=== PATIENT | male | born 1940 | race Caucasian/White ===

== ENCOUNTER 2019-04-17 10:53 | Inpatient (IN) ==
--- NOTE | 2019-03-30 12:13 | Anesthesiology Consultation ---
Date of Service March 30, 2019 Assessment & Plan (1) Encounter for pre-operative examination: Pending surgeon ordered PCP clearance (Gerry) 03/27. Multiple attempts made to obtain PCP clearance. Office is closed on and we will be unable to obtain note today (04/16). Patient will be scheduled as last case for 04/17 and will try to obtain PCP clearance AM DOS. Patient is acceptable risk from anesthesia standpoint, but surgeon ordered PCP clearance. Dr. Goncalves (scheduled to have this case) made aware. Chart check nurse notified SDS. Chart Review Chart Review: Acceptable Risk for Surgery and Patient seen in Pre Admission Testing Teaching & Discussion Instructed NPO after midnight before surgery, except medications with 15 cc of water. Medication instructions provided according to the PAT guidelines. History Surgery Operation Date: 04/17/19 13:00 Proposed Procedures p Left Total Knee Arthroplasty - Rickey Knight MD Height/Weight Height: 6 ft 1 in Weight: 101.7 kg Allergies Allergy/AdvReac Type Severity Reaction Status Date / Time No Known Allergies Allergy Verified 03/23/19 08:06 Medications Home Medications Medication Instructions Recorded Confirmed Last Taken Glucosamine, Chondroiton, Tumeric 1 tab PO BID 03/23/19 03/23/19 Unknown , Msm cholecalciferol (vitamin D3) 1,000 unit PO DAILY 03/23/19 03/23/19 Unknown [Vitamin D3] ezetimibe-simvastatin 1 tab PO QAM 03/23/19 03/23/19 03/22/19 omeprazole 40 mg PO QAM 03/23/19 03/23/19 Unknown telmisartan-hydrochlorothiazid 1 tab PO QAM 03/23/19 03/23/19 03/22/19 ergocalciferol (vitamin D2) 50,000 unit PO UD 03/30/19 03/30/19 Unknown [Vitamin D2] Past Medical History Medical History Acid reflux Bradycardia Asymptomatic History of kidney stones Hyperlipidemia Hypertension Osteoarthritis Exercise / Class Metabolic Activity II 4-5 Yardwork/Stairs/Walk up hill (Denies CP or SOB with 1 FOS) Past Family History Family History Father History of lymphoma Past Surgical History Surgical History History of appendectomy History of arthroscopy of left knee History of arthroscopy of left shoulder History of arthroscopy of right shoulder History of back surgery 3 discs repaired History of colonoscopy History of neck surgery injury related//no problems with ROM in neck Past Anesthesia History No Hx of Anesthesia Complications and No Family Hx of Anesthesia Complications History of PONV No Hx of PONV and No Hx of Motion Sickness Social History Smoking Status: Former smoker Do You Dip or Chew Tobacco: No Smoking End Date: 1979 Hx Alcohol Use: Yes Alcohol type: hard liquor alcohol intake frequency: 0-2 drinks per day (2 per day) Hx Substance Use: No substance use type: does not use Review of Systems Pt denies any recent chest pain, shortness of breath, palpitations, cough, fever or URI. Physical Exam Vital Signs BP: 164/75 (pt reports was 120's systolic at PCP office 03/27) P: 57bpm SPO2: 97% RA T: 97.8 F R: 16 ENMT Mouth: + dentures (full upper) and + dental restorations (crowns on bottom); no chipped teeth and no loose teeth Thyromental Distance: > or= 3.5 Finger Breadths (4) Mallampati Class: II Neck normal visual inspection and + facial hair (thin short mckoy); neck extension not limited Respiratory normal respiratory effort Auscultation: lungs clear to auscultation bilaterally Cardiovascular Rate/Rhythm: regular rhythm and + bradycardic Heart Sounds: no murmur Vessels: no carotid bruit Extremities: no edema Testing Laboratory Results 03/30/19 12:28 03/30/19 12:28 03/30/19 03/30/19 03/30/19 12:28 12:28 12:28 PT 10.5 INR 1.0 APTT 28.6 Hemoglobin A1c 5.3 Urine Color Urine Appearance Urine pH Ur Specific [place] Urine Protein Urine Glucose (UA) Urine Ketones Urine Nitrite Ur Leukocyte Esterase Urine WBC (Auto) Urine RBC (Auto) U Hyaline Cast (Auto) U Epithel Cells (Auto) Urine Bacteria (Auto) Blood Type O Positive Antibody Screen NEGATIVE 03/30/19 12:28 PT INR APTT Hemoglobin A1c Urine Color Yellow Urine Appearance Clear Urine pH 7.0 Ur Specific [place] 1.019 Urine Protein Negative Urine Glucose (UA) Negative Urine Ketones Negative Urine Nitrite Negative Ur Leukocyte Esterase Trace H Urine WBC (Auto) 10-30 H Urine RBC (Auto) 0-4 U Hyaline Cast (Auto) 0 U Epithel Cells (Auto) 5-10 H Urine Bacteria (Auto) 1+ H Blood Type Antibody Screen 03/30/19 12:28 Urine Culture - Preliminary Urine,Clean Catch Enterococcus species Surgeon's office made aware of + UA Electrocardiogram Date: 03/30/19 Findings: + SB @ (48bpm with 1st degree AV block and PACs) Otherwise normal EKG. Chest X-Ray Date: 03/30/19 Findings: + NAD
--- NOTE | 2019-03-30 12:18 | PAT Medication Instructions ---
Medication Instructions Date of Service March 30, 2019 Home Medications Glucosamine, Chondroiton, Tumeric , Msm 1 tab PO BID cholecalciferol (vitamin D3) [Vitamin D3] 1,000 unit PO DAILY ezetimibe-simvastatin 1 tab PO QAM omeprazole 40 mg PO QAM telmisartan-hydrochlorothiazid 1 tab PO QAM ergocalciferol (vitamin D2) [Vitamin D2] 50,000 unit PO UD STOP taking 2 weeks before surgery Glucosamine, Chondroiton, Tumeric , Msm 1 tab PO BID DO NOT take the morning of surgery cholecalciferol (vitamin D3) [Vitamin D3] 1,000 unit PO DAILY telmisartan-hydrochlorothiazid 1 tab PO QAM ergocalciferol (vitamin D2) [Vitamin D2] 50,000 unit PO UD Take morning of surgery With a small sip of water, OTHERWISE NOTHING TO EAT OR DRINK AFTER MIDNIGHT: ezetimibe-simvastatin 1 tab PO QAM omeprazole 40 mg PO QAM Other Notes If you have any questions please call us at [phone] or [phone] or [phone] or [phone]
--- NOTE | 2019-03-30 12:54 | XRay Report ---
XR chest Pre-admission PA/Lat HISTORY: 78 years-old Male pat preoperative exam. No acute chest complaints. COMPARISON: None available TECHNIQUE: PA and lateral views of the chest FINDINGS: Cardiac silhouette is mildly enlarged. There is no pneumothorax, pleural effusion, focal airspace con solidation or overt pulmonary edema. Degenerative changes of the shoulders and spine. Bones appear grossly intact. IMPRESSION: No acute process. The above report was generated using voice recognition software. It may contain grammatical, syntax o r spelling errors. Electronically signed by: Evin Diaz M.D. 03/30/2019 12:52 PM
[2019-03-30 14:23] LABS: Basophils # (auto) 0.05 K/uL (0-0.2); Basophils % (auto) 0.8 %; Eosinophils # (auto) 0.06 K/uL (0-0.5); Hematocrit (blood only) 43.2 % (42-52); Hemoglobin 14.7 g/dL (14.0-18.0); Immature Granulocytes # (auto) 0.08 K/uL (0.00-0.02); Immature Granulocytes % (auto) 1.3 %; Lymphocytes # (auto) 1.34 K/uL (1.2-3.4); Lymphocytes % (auto) 22.1 %; Mean Platelet Volume 10.8 fL (7.4-10.4); Monocytes % (auto) 6.6 %; Neutrophils # (auto) 4.14 K/uL (1.4-6.5); Neutrophils % (auto) 68.2 %; Platelet Count 159 K/uL (130-400); RDW Coefficient of Variation 13.5 % (11.5-14.5); RDW Standard Deviation 43.8 fL (36.4-46.3); Red Blood Count 4.91 M/uL (4.7-6.1); White Blood Count 6.07 K/uL (4.8-10.8)
[2019-03-30 14:30] LABS: Albumin Level 3.8 gm/dl (3.4-5.0); BUN Creatinine Ratio 26.9 (10-20); Calcium 9.5 mg/dl (8.5-10.1); Creatinine Clr Calc Pharmacy 76.8 ml/min; Est GFR (African American) 82.8; Est GFR (Non-African American) 71.4; Potassium 4.6 mmol/L (3.5-5.1)
[2019-03-30 14:37] LABS: Appearance Urine Clear (Clear); Bacteria Urine Automated 1+ (Negative); Bilirubin Urine Negative (Negative); Blood Urine Negative (Negative); Cast Urine Automated 0 /lpf (0-5); Color Urine Yellow; Glucose Urine UA Negative (Negative); Ketones Urine Negative (Negative); Leukocyte Esterase Urine Trace (Negative); Nitrite Urine Negative (Negative); Protein Urine Negative (Negative); RBC Urine Automated 0-4 /hpf (0-4); Specific Gravity Urine 1.019 (1.000-1.030); Urobilinogen Urine Negative (Negative)
[2019-03-30 14:39] LABS: Partial Thromboplastin Ratio 1.1; Partial Thromboplastin Time 28.6 Seconds (21.0-31.0); Prothrombin Time 10.5 Seconds (9.0-12.0)
[2019-03-31 06:46] LABS: Estimated Average Glucose 105 mg/dl; Hemoglobin A1C 5.3 % (4.5-5.6)
--- NOTE | 2019-04-15 08:36 | History & Physical Report ---
Date of Service April 15, 2019 Assessment & Plan (1) Primary osteoarthritis of left knee: Patient has failed conservative measures as above. Treatment options were discussed and he would like to proceed with left total knee arthroplasty. Risks, benefits and alternatives to surgery including but not limited to infection, DVT, pain, stiffness, need for revision surgery, damage to blood vessels, damage to nerves, PE, , were discussed with the patient and they wish to proceed. Plan will be for aspirin 81mg BID x 30 days for DVT prophylaxis. We will plan on outpatient PT when discharge from the hospital. All questions were answered. He will follow up in the office post operatively. History of Present Illness Chief Complaint: Left knee pain Primary Care Provider: Kvng Garrett Patient is a 78 year old male with PMHx significant for HTN, high cholesterol, GERD who presents with long standing left knee pain. He has failed prior conservative measures including injections and anti-inflammatories without much relief. His knee pain is interfering with his normal daily activities. He would like to proceed with left knee replacement. Patient denies headaches, sweats, fevers, chills, double vision, blurred vision, cough, sore throat, dysphagia, chest pain, sob, wheezing, n/v/d/c, numbness, tingling, fatigue, urinary symptoms, mood disorders. ROS positive for left pain and stiffness. Allergies Allergy/AdvReac Type Severity Reaction Status Date / Time No Known Allergies Allergy Verified 03/23/19 08:06 Home Medications Home Medications Medication Instructions Recorded Confirmed Type Glucosamine, Chondroiton, Tumeric 1 tab PO BID 03/23/19 03/23/19 History , Msm cholecalciferol (vitamin D3) 1,000 unit PO DAILY 03/23/19 03/23/19 History [Vitamin D3] ezetimibe-simvastatin 1 tab PO QAM 03/23/19 03/23/19 History omeprazole 40 mg PO QAM 03/23/19 03/23/19 History telmisartan-hydrochlorothiazid 1 tab PO QAM 03/23/19 03/23/19 History ergocalciferol (vitamin D2) 50,000 unit PO UD 03/30/19 03/30/19 History [Vitamin D2] Past Med/Surg History Medical History Acid reflux Bradycardia Asymptomatic History of kidney stones Hyperlipidemia Hypertension Osteoarthritis Surgical History History of appendectomy History of arthroscopy of left knee History of arthroscopy of left shoulder History of arthroscopy of right shoulder History of back surgery 3 discs repaired History of colonoscopy History of neck surgery injury related//no problems with ROM in neck Family History Father History of lymphoma Social History Preferred Language: Lao Communication Ability: Effective 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 Beliefs That Will Affect Care: None Current Living Situation: Alone Other Information That Helps Us Care for You: No Feels Safe at Home: Yes Smoking Status: Former smoker Do You Dip or Chew Tobacco: No Smoking End Date: 1979 Hx Alcohol Use: Yes Alcohol type: hard liquor Hx Substance Use: No Review of Systems All systems reviewed & are unremarkable except as noted in HPI & below Physical Exam Constitutional: well developed and well nourished; no acute distress Eyes: PERRL, conjunctivae normal, anicteric sclerae ENMT: external ear and nose normal, oropharynx normal Neck: trachea midline, no thyromegaly Respiratory: normal respiratory effort, lungs clear to auscultation Cardiovascular: RRR, no murmur, no edema Musculoskeletal: Left knee-Mild effusion with ROM of 0-130 degrees. Stable to valgus and varus stress, negative Ale's. Tenderness medial joint line, positive Heidi's. Mild varus deformity. Skin: no rashes, warm and dry Neurologic: patellar DTR's 2+ bilat, sensation intact Psychiatric: A+Ox3, euthymic affect Results & Data Laboratory Results Lab Results 03/30/19 03/30/19 03/30/19 Range/Units 12:28 12:28 12:28 WBC 6.07 (4.8-10.8) K/uL RBC 4.91 (4.7-6.1) M/uL Hgb 14.7 (14.0-18.0) g/dL Hct 43.2 (42-52) % MCV 88.0 (80-100) fL MCH 29.9 (25-34) pg MCHC 34.0 (32-36) g/dL RDW Std Deviation 43.8 (36.4-46.3) fL RDW Coeff of Reji 13.5 (11.5-14.5) % Plt Count 159 (130-400) K/uL MPV 10.8 H (7.4-10.4) fL Immature Gran % (Auto) 1.3 % Neut % (Auto) 68.2 % Lymph % (Auto) 22.1 % [place] % (Auto) 6.6 % Eos % (Auto) 1.0 % Baso % (Auto) 0.8 % Immature Gran # (Auto) 0.08 H (0.00-0.02) K/uL Neut # (Auto) 4.14 (1.4-6.5) K/uL Lymph # (Auto) 1.34 (1.2-3.4) K/uL [place] # (Auto) 0.40 (0.11-0.59) K/uL Eos # (Auto) 0.06 (0-0.5) K/uL Baso # (Auto) 0.05 (0-0.2) K/uL PT 10.5 (9.0-12.0) Seconds INR 1.0 (0.9-1.1) APTT 28.6 (21.0-31.0) Seconds PTT Ratio 1.1 Sodium 144 (136-145) mmol/L Potassium 4.6 (3.5-5.1) mmol/L Chloride 106 (98-107) mmol/L Carbon Dioxide 29 (21-32) mmol/L Anion Gap 9.0 (3-11) BUN 27 H (7-18) mg/dl Creatinine 1.01 (0.6-1.4) mg/dl Est Cr Clr Drug Dosing 76.8 ml/min Est GFR ( Amer) 82.8 Est GFR (Non-Af Amer) 71.4 BUN/Creatinine Ratio 26.9 H (10-20) Glucose 96 (70-99) mg/dl Estimat Average Glucose mg/dl Hemoglobin A1c (4.5-5.6) % Calcium 9.5 (8.5-10.1) mg/dl Albumin 3.8 (3.4-5.0) gm/dl Urine Color Urine Appearance (Clear) Urine pH (4.5-7.5) Ur Specific [place] (1.000-1.030) Urine Protein (Negative) Urine Glucose (UA) (Negative) Urine Ketones (Negative) Urine Blood (Negative) Urine Nitrite (Negative) Urine Bilirubin (Negative) Urine Urobilinogen (Negative) Ur Leukocyte Esterase (Negative) Urine WBC (Auto) (0-5) /hpf Urine RBC (Auto) (0-4) /hpf U Hyaline Cast (Auto) (0-5) /lpf U Epithel Cells (Auto) (0-5) /lpf Urine Bacteria (Auto) (Negative) Blood Type Antibody Screen 03/30/19 03/30/19 03/30/19 Range/Units 12:28 12:28 12:28 WBC (4.8-10.8) K/uL RBC (4.7-6.1) M/uL Hgb (14.0-18.0) g/dL Hct (42-52) % MCV (80-100) fL MCH (25-34) pg MCHC (32-36) g/dL RDW Std Deviation (36.4-46.3) fL RDW Coeff of Reji (11.5-14.5) % Plt Count (130-400) K/uL MPV (7.4-10.4) fL Immature Gran % (Auto) % Neut % (Auto) % Lymph % (Auto) % [place] % (Auto) % Eos % (Auto) % Baso % (Auto) % Immature Gran # (Auto) (0.00-0.02) K/uL Neut # (Auto) (1.4-6.5) K/uL Lymph # (Auto) (1.2-3.4) K/uL [place] # (Auto) (0.11-0.59) K/uL Eos # (Auto) (0-0.5) K/uL Baso # (Auto) (0-0.2) K/uL PT (9.0-12.0) Seconds INR (0.9-1.1) APTT (21.0-31.0) Seconds PTT Ratio Sodium (136-145) mmol/L Potassium (3.5-5.1) mmol/L Chloride (98-107) mmol/L Carbon Dioxide (21-32) mmol/L Anion Gap (3-11) BUN (7-18) mg/dl Creatinine (0.6-1.4) mg/dl Est Cr Clr Drug Dosing ml/min Est GFR ( Amer) Est GFR (Non-Af Amer) BUN/Creatinine Ratio (10-20) Glucose (70-99) mg/dl Estimat Average Glucose 105 mg/dl Hemoglobin A1c 5.3 (4.5-5.6) % Calcium (8.5-10.1) mg/dl Albumin (3.4-5.0) gm/dl Urine Color Yellow Urine Appearance Clear (Clear) Urine pH 7.0 (4.5-7.5) Ur Specific [place] 1.019 (1.000-1.030) Urine Protein Negative (Negative) Urine Glucose (UA) Negative (Negative) Urine Ketones Negative (Negative) Urine Blood Negative (Negative) Urine Nitrite Negative (Negative) Urine Bilirubin Negative (Negative) Urine Urobilinogen Negative (Negative) Ur Leukocyte Esterase Trace H (Negative) Urine WBC (Auto) 10-30 H (0-5) /hpf Urine RBC (Auto) 0-4 (0-4) /hpf U Hyaline Cast (Auto) 0 (0-5) /lpf U Epithel Cells (Auto) 5-10 H (0-5) /lpf Urine Bacteria (Auto) 1+ H (Negative) Blood Type O Positive Antibody Screen NEGATIVE Diagnostic Findings Left knee radiographs: [id number] medial compartemnt with osteophyte formation medial femoral condyle and tibial plateau. Subchondral sclerotic change.
[~2019-04-17 10:53] MED LIST: ACETAMINOPHEN 500 MG TAB PO SCH; BUPIVACAINE 0.5 % 5 MG/1 ML PF 10ML VIAL ONE; CEFAZOLIN 2000MG 2,000 MG/15 ML SYR IV SCH; CeleBREX 200 MG CAP PO SCH; FAMOTIDINE 20 MG TAB PO SCH; GABAPENTIN 300 MG PO SCH; LR 500ML BOLUS, THEN 15ML/HR IV SCH; METOCLOPRAMIDE HCL 10 MG TABLET PO SCH; ROPIVACAINE 0.5% 5 MG/ML 30 ML VIAL ONE; ROPIVACAINE 0.5% HCL/PF 150 MG, BUPIVACAINE 0.5% MPF 30 ML, EPINEPHrine 30MG/30ML (OR U... INFIL SCH; TRANEXAMIC ACID 1,000 MG **IV Intra-op IV SCH; TRANEXAMIC ACID 1,000 MG **IV Pre-op IV SCH
--- OUTSIDE RECORDS SUMMARY | 2019-04-17 10:59 | External Medical Summary | Continuity of Care Document ---
:1940 Author Name Candido Michael, Provider Address Unavailable Unavailable , Care Team Providers Name Role Phone Luis Daniel Sinclair M.D. Unavailable [email or web address] Unavailable Unavailable Unavailable Unavailable Unavailable Problems Hypertension (401.9) (I10) Nephrolithiasis (592.0) (N20.0) Hypercholesterolemia (272.0) (E78.00) Benign prostatic hyperplasia with urinary obstruction (600.0 1) (N40.1) Allergies and Adverse Reactions No Known Drug Allergies (Allergy) Medications Telmisartan-HCTZ 40-12.5 MG Oral Tablet Refills: 0 Ezetimibe-Simvastatin 10-40 MG Oral Tablet Refills: 0 Gabapentin 300 MG Oral Capsule Refills: 0 Fish Oil CAPS Refills: 0 Compound Medication; Tadalafil 5.5mg one PO qDay Stefan Sinclair Start: 06-Feb-2018 Quantity: 30 Refills: 11 Procedures History of Back Surgery Status: Complete d History of Throat Surgery Status: Comple kendall History of Appendectomy Status: Complete d History of Shoulder Surgery Status: Comp leted History of Knee Surgery Status: Complete d Immunizations Immunizations not documented Family History Father Family history of malignant neoplasm (V16.9) (Z80.9) Status: Active Mother Family history of hypertension (V17.49) (Z82.49) Status: Act daisy Social History - Smoking Status Never smoker Plan of Treatment Planned Encounters Appointment; Luis Daniel Sinclair M.D. Start: 02-Jul-2019 8:50 Request Planned Observations Planned Goals not documented Results No Known Results Results not documented Encounters Appointment; Luis Daniel Sinclair M.D. 12-Feb-2019 9:30 Encounter Diagnosis: Problem not documented Appointment; Luis Daniel Sinclair M.D. 06-Feb-2018 11:00 Encounter Diagnosis: Problem not documented Appointment; Luis Daniel Sinclair M.D. 02-Jul-2019 8:50 Encounter Diagnosis: Problem not documented
--- NOTE | 2019-04-17 12:18 | History & Physical Bridge Note ---
Date of Service April 17, 2019 History & Physical Bridge Note I have examined the patient, reviewed the History & Physical and in the interval since the performance of the History & Physical I have noted the following changes of clinical significance: PCP clearance not required. He has had appropriate pre-op work up. Anesthesia and I have discussed the case and he is safe to proceed with surgery.
[2019-04-17] MEDS ORDERED: BACITRACIN INJ 50,000 UNIT VIAL ONE (12:52)
[2019-04-17] MEDS ORDERED: ORTHO JOINT ANESTHETIC ONE (12:52)
[2019-04-17] MEDS ORDERED: fentaNYL citrate 100 MCG/2 ML VIAL ONE (12:58)
[2019-04-17] MEDS ORDERED: MIDAZOLAM HCL 1 MG/ML 2ML VIAL ONE (12:58)
[2019-04-17] MEDS ORDERED: HYDROmorphone INJ 1 MG/ML SYRINGE IV PRN (13:53)
[2019-04-17] MEDS ORDERED: ATROPINE SULFATE 0.1 MG/ML 10ML SYR IV PRN (13:53)
[2019-04-17] MEDS ORDERED: ePHEDrine sulfate 50 MG/ML AMP IV PRN (13:53)
[2019-04-17] MEDS ORDERED: LIDOCAINE HCL 2% 2 ML VIAL/AMP(20MG/ML) INFIL ONE (13:59)
[2019-04-17] MEDS ORDERED: ePHEDrine sulfate 50 MG/ML AMP ONE (13:59)
[2019-04-17] MEDS ORDERED: PROPOFOL IV EMULSION 10 MG/ML 20 ML VIAL IV ONE ×2 (13:59→14:28)
--- NOTE | 2019-04-17 14:54 | Operative Report ---
Post Operative Report Pre & Post Diagnosis Operation Date: 04/17/19 13:00 Pre-Op Diagnosis: Unilateral Primary Osteoarthritis, Left Knee Post-Op Diagnosis: Unilateral Primary Osteoarthritis, Left Knee Procedure Operation Date: 04/17/19 13:00 Actual Procedures p Left Total Knee Arthroplasty(Left) - Rickey Knight MD Surgeon Rickey Knight MD Promotion Specialist Jose Acevedo PA-C Estimated Blood Loss 20 Findings Consistent with Post-Op Diagnosis Specimens Bone and tissue Drains 2 Hemovac Anesthesia Type MAC Spinal Regional Complications none Disposition Accompanied Patient To Recovery: No Disposition: Recovery Room Indications The patient is a 79-year-old male long-standing pain in the left knee. He is [id number] medial compartment. He has failed conservative measures including injection, anti-inflammatories, physical therapy. He wishes to proceed with total knee arthroplasty Description of Procedure Risks benefits and alternatives of surgery including but not limited to infection, DVT, pain, stiffness, need for surgery, damage to blood vessels, damage to nerves or risks of anesthesia were discussed with the patient and they wished to proceed. The patient was identified and the laterality was confirmed and marked. They received a preoperative antibiotic as well as a spinal anesthetic and an abductor canal block. A well-padded tourniquet was applied and then the limb was prepped and draped in standard manner with ChloraPrep. The limb was exsanguinated and the tourniquet was inflated. I made a standard anterior incision. I sharply incised the skin then utilized Bovie electrocautery to achieve hemostasis. I made a medial parapatellar arthrotomy and mobilized the patella laterally. I then excised the anterior horns of the medial and lateral meniscus as well as the infrapatellar fat pad. I elevated a portion of the MCL off of the tibia. I then pinned into place a patient-matched distal femoral cutting guide and made my distal femoral resection. I then pinned into place the 5 in 1 femoral cutting guide. I made my anterior, posterior and chamfer cuts. I then excised the cruciates and the remaining portions of the menisci. I then pinned into place a patient- matched tibial cutting guide and made my tibial resection. I then pinned into place the tibial plate a utilizing alignment anusha to confirm rotation. I then cut for the post. Utilizing a lamina outside installation machinist and I then removed posterior osteophytes off the femur. I then placed a trial femur into position and cut for the trochlear component. I then sequentially trialed to size the polyethylene until there was good soft tissue balancing and range of motion. I then prepared the patella with a freehand cut utilizing sagittal saw. I sized and drilled for the patella. There was good tracking to the patella no lateral release was needed. All the trial components were removed. The deep tissues were anesthetized with an ortho mix solution. Then with Simplex HV with gentamicin cement, I cemented my definitive components. Definitive components, Cárdenas and Nephew Lisaney 2: Femur 7 Tibia 5 Poly 9 Patella 38 oval A betadine soak was performed. A deep drain was placed. The arthrotomy was closed with interrupted #1 Vicryl suture subcutaneous tissue was closed with interrupted 2-0 Vicryl suture. The skin was closed with with mickey. An Acticoat and Juan M dressing were placed. Sterile dressings were applied. All needle and sponge counts were correct at the end of the procedure patient was transferred to the PACU in stable condition without apparent complication. The PA-C was necessary for assistance with procedure for assistance in positioning, prepping, draping, retraction and closure. I attest to the content of the Intraoperative Record and any orders documented therein. Any exceptions are noted below.
--- NOTE | 2019-04-17 16:36 | Anesthesiology Progress Note ---
Date of Service April 17, 2019 Anesthesia Post Procedure Vital Signs Vital Signs: Temp Pulse Pulse Resp BP BP Pulse Ox 04/17/19 16:25 69 16 149/76 H 97 04/17/19 16:15 36.5 C 65 16 152/76 H 97 04/17/19 16:05 68 16 137/80 96 04/17/19 15:55 77 16 143/66 H 97 04/17/19 15:49 36.0 C L 81 16 112/79 97 04/17/19 11:18 36.4 C L 99 H 18 136/87 95 Transfer of Care Handoff Completed per policy Notes Mental Status: alert / awake / arousable and participated in evaluation Nausea / Vomiting: adequately controlled Pain: adequately controlled Airway Patency, RR, SpO2: stable & adequate BP & HR: stable & adequate Hydration State: stable & adequate Neuraxial Anesthesia: was administered and sensory block is resolving Anesthetic Complications: no major complications apparent and Pt Satisfied with anesthetic care
--- NOTE | 2019-04-17 16:42 | XRay Report ---
XR knee LT 2V routine CLINICAL HISTORY: Postoperative examination COMPARISON: None. DISCUSSION: There are postsurgical changes of a total left knee arthroplasty and patellar resurfacing . The femoral and tibial components appear well seated. Overlying skin mickey and surgical drains ar e evident. There is air within the soft tissues consistent with recent surgery. IMPRESSION: Postsurgical changes of a total left knee arthroplasty. Electronically signed by: Pratik Trujillo M.D. 04/17/2019 4:41 PM
[2019-04-17] MEDS ORDERED: METOCLOPRAMIDE HCL INJ 5 MG/ML 2 ML VIAL IV PRN (16:53)
[2019-04-17] MEDS ORDERED: ONDANSETRON INJ 2 MG/ML 2 ML VIAL IV PRN (16:53)
[2019-04-17] MEDS ORDERED: TAMSULOSIN HCL 0.4 MG CAP PO PRN (16:53)
[2019-04-17] MEDS ORDERED: HYDROmorphone INJ 0.5 MG/0.5 ML SYR IV PRN (16:53)
[2019-04-17] MEDS ORDERED: BISACODYL 10 MG SUPP PR PRN (16:53)
[2019-04-17] MEDS ORDERED: NALOXONE HCL 0.4 MG/1 ML VIAL/CARP IV PRN (16:53)
[2019-04-17] MEDS ORDERED: MAGNESIUM HYDROXIDE SUSP 30 ML UDC PO PRN (16:53)
[2019-04-17] MEDS: SODIUM CHLORIDE 0.9% 1000ML 1,000 ML IV SCH (19:12)
[2019-04-17] MEDS: CeleBREX 200 MG CAP PO SCH (21:22)
[2019-04-17] MEDS: DOCUSATE SODIUM 100 MG CAP PO SCH (21:22)
[2019-04-17] MEDS: SENNA 8.6 MG TAB PO SCH (21:23)
[2019-04-17] MEDS: ASPIRIN 81 MG ECTAB PO SCH (21:23)
[2019-04-17] MEDS: ACETAMINOPHEN 500 MG TAB PO SCH (21:23)
[2019-04-17] MEDS: CEFAZOLIN 2000MG 2,000 MG/15 ML SYR IV SCH (22:24)
[2019-04-18] MEDS: ACETAMINOPHEN 500 MG TAB PO SCH ×3 (05:38→21:00)
[2019-04-18] MEDS: CEFAZOLIN 2000MG 2,000 MG/15 ML SYR IV SCH (05:38)
[2019-04-18 06:06] LABS: Hematocrit (blood only) 38.2 % (42-52); Hemoglobin 13.4 g/dL (14.0-18.0); Mean Corpuscular Hgb Conc 35.1 g/dL (32-36); Mean Platelet Volume 10.8 fL (7.4-10.4); Platelet Count 139 K/uL (130-400); RDW Standard Deviation 41.9 fL (36.4-46.3); Red Blood Count 4.39 M/uL (4.7-6.1); White Blood Count 9.13 K/uL (4.8-10.8)
[2019-04-18] MEDS: SODIUM CHLORIDE 0.9% 1000ML 1,000 ML IV SCH (06:18)
[2019-04-18 06:42] LABS: BUN Creatinine Ratio 29.1 (10-20); Calcium 8.9 mg/dl (8.5-10.1); Creatinine Clr Calc Pharmacy 64.5 ml/min; Est GFR (African American) 68.8; Est GFR (Non-African American) 59.4; Potassium 3.8 mmol/L (3.5-5.1)
--- NOTE | 2019-04-18 08:21 | Orthopedic Progress Note ---
Date of Service April 18, 2019 Assessment & Plan (1) Primary osteoarthritis of left knee: POD #1 s/p left TKA PT/OT DVT prophylaxis--AMALIA's, Aspirin WBAT LLE D/C planning--home with OPPT, possibly tomorrow. Subjective Left knee doing well today. No complaints. Pain controlled. States the hemovac was drained earlier this morning. Physical Exam Constitutional: WD/WN, vitals as above Musculoskeletal: Knee: + surgical incision (Left knee: MATT dressing in place and functioning. MARK bandage in place. ) and + surgical drain present (hemovac in place--~600 cc drainage.); knee normal to inspection and no deformity Neurologic: normal touch/pain/proprioception and moves all extremities (left ankle: dorsiflexion/plantarflexion intact.) Psychiatric: A+Ox3, euthymic affect Results & Data Vital Signs (Past 12 Hours) Vital Signs Temp Pulse Resp BP Pulse Ox 04/18/19 07:13 37.0 C 59 L 18 167/96 H 96 04/18/19 03:13 36.4 C L 68 16 155/88 H 95 04/17/19 23:11 36.4 C L 60 18 160/78 H 94
[2019-04-18] MEDS: PANTOprazole 40 MG TAB PO SCH (08:45)
[2019-04-18] MEDS: EZETIMIBE/SIMVASTATIN 10/40MG 1 TAB TAB PO SCH (08:45)
[2019-04-18] MEDS: MULTIVITAMIN TAB PO SCH (08:45)
[2019-04-18] MEDS: ASPIRIN 81 MG ECTAB PO SCH ×2 (08:45→20:59)
[2019-04-18] MEDS: DOCUSATE SODIUM 100 MG CAP PO SCH ×2 (08:46→19:20)
[2019-04-18] MEDS: TELMISARTAN 40 MG TAB PO SCH (08:46)
[2019-04-18] MEDS: CeleBREX 200 MG CAP PO SCH ×2 (08:46→20:59)
[2019-04-18] MEDS: hydroCHLOROthiazide 25 MG TAB PO SCH (08:47)
[2019-04-18] MEDS ORDERED: NON-FORMULARY MEDICATION (Cholecalciferol (Vitamin D3) [Vitamin D3] 1,000 UNITS) PO SCH (09:00)
--- NOTE | 2019-04-18 11:39 | Anesthesiology Progress Note ---
Date of Service April 18, 2019 Anesthesia Post Procedure Vital Signs Vital Signs: Temp Pulse Pulse Resp BP BP Pulse Ox 04/18/19 08:42 54 L 157/72 H 04/18/19 07:13 37.0 C 59 L 18 167/96 H 96 04/18/19 03:13 36.4 C L 68 16 155/88 H 95 04/17/19 23:11 36.4 C L 60 18 160/78 H 94 04/17/19 20:08 36.5 C 60 17 156/63 H 95 04/17/19 19:03 36.5 C 54 L 17 153/76 H 95 04/17/19 17:45 37.0 C 59 L 17 162/82 H 96 04/17/19 17:17 56 L 18 152/80 H 95 04/17/19 16:45 36.7 C 59 L 20 148/77 H 97 04/17/19 16:25 69 16 149/76 H 97 04/17/19 16:15 36.5 C 65 16 152/76 H 97 04/17/19 16:05 68 16 137/80 96 04/17/19 15:55 77 16 143/66 H 97 04/17/19 15:49 36.0 C L 81 16 112/79 97 Pain Intensity Left Knee: Pain Intensity: 0 Notes Mental Status: alert / awake / arousable and participated in evaluation Patient Amnestic to Procedure: Yes Nausea / Vomiting: see Notes below Pain: adequately controlled Airway Patency, RR, SpO2: stable & adequate BP & HR: stable & adequate Hydration State: stable & adequate Anesthetic Complications: no major complications apparent and Pt Satisfied with anesthetic care
[2019-04-18] MEDS: OXYCODONE HCL IR 5 MG TAB (IMMEDIATE RELEASE) PO PRN ×3 (16:06→20:59)
[2019-04-18] MEDS: SENNA 8.6 MG TAB PO SCH (19:20)
[2019-04-19] MEDS: ACETAMINOPHEN 500 MG TAB PO SCH (05:40)
[2019-04-19] MEDS: CeleBREX 200 MG CAP PO SCH (07:44)
[2019-04-19] MEDS: ASPIRIN 81 MG ECTAB PO SCH (07:45)
[2019-04-19] MEDS: DOCUSATE SODIUM 100 MG CAP PO SCH (07:45)
[2019-04-19] MEDS: hydroCHLOROthiazide 25 MG TAB PO SCH (07:45)
[2019-04-19] MEDS: TELMISARTAN 40 MG TAB PO SCH (07:46)
[2019-04-19] MEDS: EZETIMIBE/SIMVASTATIN 10/40MG 1 TAB TAB PO SCH (07:46)
[2019-04-19] MEDS: MULTIVITAMIN TAB PO SCH (07:46)
[2019-04-19] MEDS: PANTOprazole 40 MG TAB PO SCH (07:46)
[2019-04-19] MEDS: OXYCODONE HCL IR 5 MG TAB (IMMEDIATE RELEASE) PO PRN (07:50)
--- NOTE | 2019-04-19 07:52 | Orthopedic Progress Note ---
Date of Service April 19, 2019 Assessment & Plan (1) Primary osteoarthritis of left knee: POD #2 s/p left TKA PT/OT DVT prophylaxis--AMALIA's, Aspirin WBAT LLE D/C planning--home with OPPT today Subjective Left knee doing well today. No complaints. Pain controlled. Denies CP, SOB, LH. Physical Exam Constitutional: WD/WN, vitals as above Musculoskeletal: Knee: + surgical incision (Left knee: MATT dressing in place and functioning. MARK bandage in place. ); knee normal to inspection, no deformity and no surgical drain present (hemovac has been removed and compression dressing in place.) Neurologic: normal touch/pain/proprioception and moves all extremities (left ankle: dorsiflexion/plantarflexion intact.) Psychiatric: A+Ox3, euthymic affect Results & Data Vital Signs (Past 12 Hours) Vital Signs Temp Pulse Resp BP BP Pulse Ox 04/19/19 06:42 160/85 H 04/19/19 06:03 36.5 C 52 L 18 181/82 H 98 04/18/19 23:33 36.6 C 50 L 16 128/68 96
--- NOTE | 2019-04-19 13:08 | Discharge Summary ---
Date of Service April 19, 2019 Admission HPI Per Admitting Provider Patient is a 78 year old male with PMHx significant for HTN, high cholesterol, GERD who presents with long standing left knee pain. He has failed prior conservative measures including injections and anti-inflammatories without much relief. His knee pain is interfering with his normal daily activities. He would like to proceed with left knee replacement. Patient denies headaches, sweats, fevers, chills, double vision, blurred vision, cough, sore throat, dysphagia, chest pain, sob, wheezing, n/v/d/c, numbness, tingling, fatigue, urinary symptoms, mood disorders. ROS positive for left pain and stiffness. Admission Exam Per Admitting Provider Constitutional: well developed and well nourished; no acute distress Eyes: PERRL, conjunctivae normal, anicteric sclerae ENMT: external ear and nose normal, oropharynx normal Neck: trachea midline, no thyromegaly Respiratory: normal respiratory effort, lungs clear to auscultation Cardiovascular: RRR, no murmur, no edema Musculoskeletal: Left knee-Mild effusion with ROM of 0-130 degrees. Stable to valgus and varus stress, negative Ale's. Tenderness medial joint line, positive Heidi's. Mild varus deformity. Skin: no rashes, warm and dry Neurologic: patellar DTR's 2+ bilat, sensation intact Psychiatric: A+Ox3, euthymic affect Principal Diagnosis Left knee osteoarthritis Discharge Exam Constitutional well developed and well nourished; no acute distress Eyes PERRL, conjunctivae normal, anicteric sclerae ENMT external ear and nose normal, oropharynx normal Neck trachea midline, no thyromegaly Respiratory normal respiratory effort, lungs clear to auscultation Cardiovascular RRR, no murmur, no edema Skin no rashes, warm and dry Neurologic patellar DTR's 2+ bilat, sensation intact Psychiatric A+Ox3, euthymic affect Discharge Data Allergies Allergy/AdvReac Type Severity Reaction Status Date / Time No Known Allergies Allergy Verified 03/23/19 08:06 Consultations 04/17/19 16:53 Consult Case Management - Discharge Planning Routine Procedures Performed Operation Date: 04/17/19 13:00 Actual Procedures p Left Total Knee Arthroplasty(Left) - Rickey Knight MD Ordered Studies 04/17/19 05:00 [facility] (1) Primary osteoarthritis of left knee: Patient presented for same day admission following left total knee arthroplasty on 04/17/19. He tolerated procedure well. The Patient had an uneventful hospital course. Post-operatively, his activity was progressed and well tolerated. They participated in PT with ambulation distance of 350 feet. ROM of operative knee reached 100 degrees. Labs remained stable- lowest hemoglobin recorded: 13.4. Pain controlled on oral medications. Please refer to daily progress notes and PT notes for complete details. After exam on 04/19/19, patient was felt to be stable for discharge home with plans on attending outpatient physical therapy. Patient will f/u in the office in about 2 weeks for further evaluation including x-rays and incision check, sooner if having any issues or concerns. Lab Results 03/30/19 03/30/19 03/30/19 Range/Units 12:28 12:28 12:28 WBC 6.07 (4.8-10.8) K/uL RBC 4.91 (4.7-6.1) M/uL Hgb 14.7 (14.0-18.0) g/dL Hct 43.2 (42-52) % MCV 88.0 (80-100) fL MCH 29.9 (25-34) pg MCHC 34.0 (32-36) g/dL RDW Std Deviation 43.8 (36.4-46.3) fL RDW Coeff of Reji 13.5 (11.5-14.5) % Plt Count 159 (130-400) K/uL MPV 10.8 H (7.4-10.4) fL Immature Gran % (Auto) 1.3 % Neut % (Auto) 68.2 % Lymph % (Auto) 22.1 % [place] % (Auto) 6.6 % Eos % (Auto) 1.0 % Baso % (Auto) 0.8 % Immature Gran # (Auto) 0.08 H (0.00-0.02) K/uL Neut # (Auto) 4.14 (1.4-6.5) K/uL Lymph # (Auto) 1.34 (1.2-3.4) K/uL Highlands # (Auto) 0.40 (0.11-0.59) K/uL Eos # (Auto) 0.06 (0-0.5) K/uL Baso # (Auto) 0.05 (0-0.2) K/uL PT 10.5 (9.0-12.0) Seconds INR 1.0 (0.9-1.1) APTT 28.6 (21.0-31.0) Seconds PTT Ratio 1.1 Sodium 144 (136-145) mmol/L Potassium 4.6 (3.5-5.1) mmol/L Chloride 106 (98-107) mmol/L Carbon Dioxide 29 (21-32) mmol/L Anion Gap 9.0 (3-11) BUN 27 H (7-18) mg/dl Creatinine 1.01 (0.6-1.4) mg/dl Est Cr Clr Drug Dosing 76.8 ml/min Est GFR ( Amer) 82.8 Est GFR (Non-Af Amer) 71.4 BUN/Creatinine Ratio 26.9 H (10-20) Glucose 96 (70-99) mg/dl Estimat Average Glucose mg/dl Hemoglobin A1c (4.5-5.6) % Calcium 9.5 (8.5-10.1) mg/dl Albumin 3.8 (3.4-5.0) gm/dl Urine Color Urine Appearance (Clear) Urine pH (4.5-7.5) Ur Specific [place] (1.000-1.030) Urine Protein (Negative) Urine Glucose (UA) (Negative) Urine Ketones (Negative) Urine Blood (Negative) Urine Nitrite (Negative) Urine Bilirubin (Negative) Urine Urobilinogen (Negative) Ur Leukocyte Esterase (Negative) Urine WBC (Auto) (0-5) /hpf Urine RBC (Auto) (0-4) /hpf U Hyaline Cast (Auto) (0-5) /lpf U Epithel Cells (Auto) (0-5) /lpf Urine Bacteria (Auto) (Negative) Blood Type Antibody Screen 03/30/19 03/30/19 03/30/19 Range/Units 12:28 12:28 12:28 WBC (4.8-10.8) K/uL RBC (4.7-6.1) M/uL Hgb (14.0-18.0) g/dL Hct (42-52) % MCV (80-100) fL MCH (25-34) pg MCHC (32-36) g/dL RDW Std Deviation (36.4-46.3) fL RDW Coeff of Reji (11.5-14.5) % Plt Count (130-400) K/uL MPV (7.4-10.4) fL Immature Gran % (Auto) % Neut % (Auto) % Lymph % (Auto) % [place] % (Auto) % Eos % (Auto) % Baso % (Auto) % Immature Gran # (Auto) (0.00-0.02) K/uL Neut # (Auto) (1.4-6.5) K/uL Lymph # (Auto) (1.2-3.4) K/uL [place] # (Auto) (0.11-0.59) K/uL Eos # (Auto) (0-0.5) K/uL Baso # (Auto) (0-0.2) K/uL PT (9.0-12.0) Seconds INR (0.9-1.1) APTT (21.0-31.0) Seconds PTT Ratio Sodium (136-145) mmol/L Potassium (3.5-5.1) mmol/L Chloride (98-107) mmol/L Carbon Dioxide (21-32) mmol/L Anion Gap (3-11) BUN (7-18) mg/dl Creatinine (0.6-1.4) mg/dl Est Cr Clr Drug Dosing ml/min Est GFR ( Amer) Est GFR (Non-Af Amer) BUN/Creatinine Ratio (10-20) Glucose (70-99) mg/dl Estimat Average Glucose 105 mg/dl Hemoglobin A1c 5.3 (4.5-5.6) % Calcium (8.5-10.1) mg/dl Albumin (3.4-5.0) gm/dl Urine Color Yellow Urine Appearance Clear (Clear) Urine pH 7.0 (4.5-7.5) Ur Specific [place] 1.019 (1.000-1.030) Urine Protein Negative (Negative) Urine Glucose (UA) Negative (Negative) Urine Ketones Negative (Negative) Urine Blood Negative (Negative) Urine Nitrite Negative (Negative) Urine Bilirubin Negative (Negative) Urine Urobilinogen Negative (Negative) Ur Leukocyte Esterase Trace H (Negative) Urine WBC (Auto) 10-30 H (0-5) /hpf Urine RBC (Auto) 0-4 (0-4) /hpf U Hyaline Cast (Auto) 0 (0-5) /lpf U Epithel Cells (Auto) 5-10 H (0-5) /lpf Urine Bacteria (Auto) 1+ H (Negative) Blood Type O Positive Antibody Screen NEGATIVE 04/18/19 04/18/19 Range/Units 05:33 05:33 WBC 9.13 (4.8-10.8) K/uL RBC 4.39 L (4.7-6.1) M/uL Hgb 13.4 L (14.0-18.0) g/dL Hct 38.2 L (42-52) % MCV 87.0 (80-100) fL MCH 30.5 (25-34) pg MCHC 35.1 (32-36) g/dL RDW Std Deviation 41.9 (36.4-46.3) fL RDW Coeff of Reji 13.0 (11.5-14.5) % Plt Count 139 (130-400) K/uL MPV 10.8 H (7.4-10.4) fL Immature Gran % (Auto) % Neut % (Auto) % Lymph % (Auto) % [place] % (Auto) % Eos % (Auto) % Baso % (Auto) % Immature Gran # (Auto) (0.00-0.02) K/uL Neut # (Auto) (1.4-6.5) K/uL Lymph # (Auto) (1.2-3.4) K/uL [place] # (Auto) (0.11-0.59) K/uL Eos # (Auto) (0-0.5) K/uL Baso # (Auto) (0-0.2) K/uL PT (9.0-12.0) Seconds INR (0.9-1.1) APTT (21.0-31.0) Seconds PTT Ratio Sodium 141 (136-145) mmol/L Potassium 3.8 (3.5-5.1) mmol/L Chloride 106 (98-107) mmol/L Carbon Dioxide 26 (21-32) mmol/L Anion Gap 8.0 (3-11) BUN 34 H (7-18) mg/dl Creatinine 1.17 (0.6-1.4) mg/dl Est Cr Clr Drug Dosing 64.5 ml/min Est GFR ( Amer) 68.8 Est GFR (Non-Af Amer) 59.4 BUN/Creatinine Ratio 29.1 H (10-20) Glucose 121 H (70-99) mg/dl Estimat Average Glucose mg/dl Hemoglobin A1c (4.5-5.6) % Calcium 8.9 (8.5-10.1) mg/dl Albumin (3.4-5.0) gm/dl Urine Color Urine Appearance (Clear) Urine pH (4.5-7.5) Ur Specific [place] (1.000-1.030) Urine Protein (Negative) Urine Glucose (UA) (Negative) Urine Ketones (Negative) Urine Blood (Negative) Urine Nitrite (Negative) Urine Bilirubin (Negative) Urine Urobilinogen (Negative) Ur Leukocyte Esterase (Negative) Urine WBC (Auto) (0-5) /hpf Urine RBC (Auto) (0-4) /hpf U Hyaline Cast (Auto) (0-5) /lpf U Epithel Cells (Auto) (0-5) /lpf Urine Bacteria (Auto) (Negative) Blood Type Antibody Screen Total Time Total Time Spent Total Time Spent (In Minutes): 20 Discharge Plan Discharge Items Patient Disposition: Home - Self-Care Reason For Visit: Unilateral Primary Osteoarthritis, Left Knee Discharge Diagnosis: left knee osteoarthritis Discharge Goals: Decrease discomfort and Improve function Activity: Per 'Additional Instructions' section Weightbearing: Left weightbearing Weightbearing Comment: as tolerated Non-emergency contact: Surgeon Call non-emergency contact if: your pain is not controlled, your pain is worsening and your temperature is above 101.5 Follow-up/Referrals: Kvng Garrett [Primary Care Provider] - Diet: Regular Addtl Provider Instructions: ACTIVITY RECOMMENDATIONS: SELF CARE INSTRUCTIONS AFTER TOTAL KNEE REPLACEMENT A. You may need to continue a physical therapy program after discharge from the hospital. There are several options available to you. Your doctor will assist you in selecting the best one for you. 1. An out-patient facility 3 times a week for therapy. 2. Home therapy for 1 to 2 weeks with outpatient therapy to follow. 3. Continue working on all exercises taught by physical therapy three times a day for 20 minutes on non-therapy days. Your goals should be to increase the bending of your knee to 90 degrees and beyond and to fully straighten your knee. Ice and elevate knee after exercise. B. Weight as tolerated with a walker or as instructed by your physician. C. It is okay to shower if minimal to no drainage from incision. No Baths. Do not soak wound. D. Make walking a part of your daily routine. Be up as much as comfortable with rest periods throughout the day. Rest with leg elevation is very important. Use the ice wrap frequently for the first 3-4 weeks. E. There are no restrictions on activities. You may ride in a car, shop, participate in appointment scheduler and all social activities. F. Wear the long elastic stockings (AMALIA hose) 20 hours a day for one month after surgery. They can be removed several times a day for laundering and when showering. G. MATT dressing: You have a MATT dressing on your surgical wound. It will remain in place for 7 days from surgery. You will be provided with a booklet with the do's and don'ts with the dressing in place. After 7 days, the dressing may be removed. If there is drainage from the surgical incision, you may cover the wound with dry dressings SPECIAL CARE INSTRUCTIONS: VERY IMPORTANT TO READ AND REVIEW A. Take Aspirin (blood thinning medications) as directed by your doctor. If on Coumadin, have a pro-time (blood test) drawn according to your doctor's instructions. This will tell the doctor how well the Coumadin is thinning your blood. B. There are a few signs you need to watch for after you are home. Call [facility] if you notice any of the followin. Increased severe knee pain. Some pain is expected especially when you exercise. 2. Increased swelling in your leg or knee; pain or swelling of the calf muscle in either lower leg. 3. Any redness or fluid drainage from the incision. 4. Shortness of breath or chest pain. 5. A Temperature of 101.5 degrees F or greater. C. Please call [facility] at if you have any concerns or questions about your operation or recovery. The doctor or his nurse will return your call promptly. D. You must take antibiotics before dental work, bladder, bowel or other surgery. Your doctor will provide you with a permanent care to carry describing this precaution. FOLLOW UP VISIT: If appointment is not already scheduled: Please call [facility] to make a follow-up appointment for 2 weeks after your surgery at . Prescriptions: New aspirin [Ecotrin Low Strength] 81 mg Tablet,Delayed Release (Dr/Ec) 81 mg PO BID Qty: 60 RF: 0 acetaminophen [Tylenol Extra Strength] 500 mg Tablet 1,000 mg PO Q8 Qty: 120 RF: 0 celecoxib [Celebrex] 200 mg Capsule 200 mg PO BID Qty: 60 RF: 0 oxycodone 5 mg Tablet 5 - 10 mg PO Q4H PRN (Reason: pain) Qty: 30 RF: 0 Continued telmisartan-hydrochlorothiazid 40-12.5 mg Tablet 1 tab PO QAM RF: 0 omeprazole 40 mg Capsule,Delayed Release(Dr/Ec) 40 mg PO QAM RF: 0 ezetimibe-simvastatin 10-40 mg Tablet 1 tab PO QAM RF: 0 cholecalciferol (vitamin D3) [Vitamin D3] 1,000 unit Capsule 1,000 unit PO DAILY RF: 0 Glucosamine, Chondroiton, Tumeric , Msm 1 tab PO BID RF: 0 ergocalciferol (vitamin D2) [Vitamin D2] 50,000 unit Capsule 50,000 unit PO UD RF: 0 Stand-Alone Forms: [employer], [facility] [employer]/Other Patient Handouts: Surgery Prevent DVT After, Closure Wound Vacuum Assisted, ED Stockings Amalia Discharge Orders: Discharge Order (Routine); Ordered 04/19/19 Ordered By: Gabriel Phillips Admission Data Admit Date/Time: 04/17/19 15:52 Attending Provider: Rickey Knight Admit Provider: Rickey Knight Primary Care Provider: Kvng Garrett Service: Surgical Services Other Interventions: Discharge Summary Assessment (RN) Last Done: 04/19/19 07:56 DC Date/Time DO NOT enter until pt leaves facility: 04/19/19 11:37
[2019-04-20] MEDS ORDERED: SIMVASTATIN 40 MG TAB PO SCH (09:00)
[2019-04-20] MEDS ORDERED: EZETIMIBE 10 MG TABLET PO SCH (09:00)
[2019-04-20] MEDS ORDERED: ERGOCALCIFEROL 50,000 UNITS CAP PO SCH (09:00)
== END 2019-04-19 11:37 | disposition home or self-care (01) | DRG 470 ==
LOC: ASU 10:53 → 3E 15:52